=== PATIENT | female | born 1970 ===

== ENCOUNTER 2023-05-08 11:14 | Emergency (ER) | payer MEDICAID, SELFPAY ==
--- NOTE | ~2023-05-08 | XR_ITS ---
EXAMINATION: XR RIBS, LEFT CLINICAL INFORMATION: Reason for Exam lateral/posterior pain COMPARISON: None TECHNIQUE: 3 views of the Left ribs. 1 view of the chest. FINDINGS: No displaced rib fracture. Clear lungs. No pneumothorax. No pleural effusion. Normal cardiomediastinal silhouette. XR/XR ribs LT min 3V w CXR1V IMPRESSION: No displaced rib fracture. Please note that rib radiographs have low sensitivity for detection of rib fractures and if continued clinical concern CT chest is advised.
--- NOTE | 2023-05-08 11:40 | ED_ITS ---
HPI - General Adult General Chief complaint: General Medical Stated complaint: Rib pain left side Time Seen by Provider: 05/08/23 11:59 Source: patient and civil engineer's aide (Mongolian) Mode of arrival: ambulatory Limitations: no limitations History of Present Illness HPI narrative: 53 year old Mongolian speaking female with pmhx significant for hypertension and anxiety presents to the emergency department today for evaluation of acute left- sided rib pain that started 2 days ago. She states that she was sitting down and went to stand up when she felt pain to her left posterior ribs. Denies injury or trauma to the area. The pain is now traveling up her back. Pain is exacerbated with walking. She admits to having to lean forward when she walks due to the pain. States she feels as though she pulled something in her back. She has not taken any [id number] medications for this at home. States there are no associated symptoms with this. Denies recent travel or long car rides. Denies fever, chills, chest pain, shortness of breath, dyspnea, palpitations, hemoptysis, nausea or vomiting, abdominal pain or flank pain, dysuria, hematuria, lower extremity pain/swelling. Related Data Previous Rx's Medication Instructions Recorded cyclobenzaprine 5 mg tablet 5 mg PO BEDTIME PRN muscle spasm 05/08/23 #10 tabs lidocaine 5 % topical patch 1 patch topical DAILY #15 ea 05/08/23 (Lidoderm) naproxen 500 mg tablet 500 mg PO Q8-12H PRN pain (scale 05/08/23 score 4-6) #14 tabs Allergies Allergy/AdvReac Type Severity Reaction Status Date / Time No Known Allergies Allergy Unverified 11/08/19 15:33 [No Known Allergies*] Review of Systems Review of Systems: Constitutional: No fever, chills, fatigue, night sweats, weight changes ENT/Mouth: No ear pain, hearing loss, nasal congestion, sinus pain, rhinorrhea, sore throat Eyes: No eye pain, swelling, redness, vision changes, discharge Cardio: No chest pain, palpitations, HARDY, orthopnea, peripheral edema Pulm: No SOB, cough, sputum, wheezing, dyspnea, hemoptysis GI: No nausea, vomiting, hematemesis, abdominal pain, diarrhea, constipation, hematochezia, melena : No irregular bleeding, dysuria, frequency, urgency, hesitancy, hematuria, flank pain, urinary flow changes, urinary incontinence or retention MSK: No back pain, neck pain, joint pain, myalgias, +left rib pain Skin: No lesions, rashes Neuro: No weakness, numbness, paresthesias, LOC, dizziness, headache Psych: No anxiety/panic, depression, SI/HI, AH/VH All other systems reviewed and are negative. [facility] Past Medical History Attestation statement: The following information was validated with the patient. Source: old records reviewed and nursing notes reviewed Social History Social History Advance Directives: No Advance Directives Information Provided: No Physical Exam ED Vital Signs: Vital Signs - 24 hr 05/08/23 11:41 05/08/23 14:50 Temperature 97.3 F 97 F Pulse Rate 68 64 Respiratory Rate 16 16 Blood Pressure 117/77 127/81 Pulse Oximetry 97 98 Oxygen Delivery Method Room Air Room Air BMI result Body Mass Index 22.2 Vital signs stable, afebrile. Not hypoxic. Const General: cooperative, healthy appearing, comfortable and no acute distress Orientation/consciousness: patient oriented x3 Limitations: no limitations HENMT Head: Yes normal to inspection, Yes No palpable skull fracture present, Yes normocephalic and Yes atraumatic Eyes General: appearance normal, both eyes and all related structures Conjunctivae: conjunctivae normal Sclerae: sclerae normal Pupils: Equal, round and reactive pupils present EOM: EOMs intact bilaterally Neck Neck: Yes normal visual inspection, Yes full ROM, Yes no lymphadenopathy and Yes no JVD Chest Other: + slightly tender to palpation of the left lateral to posterior 7-10th ribs without palpable deformity. Chest palpation & inspection: normal inspection of the chest, no crepitus and no masses Resp Effort & Inspection: normal respiratory effort, able to speak in complete sentences and symmetric chest movement Auscultation: clear to auscultation bilaterally Cardio Jugular venous distension: no JVD Rate: regular rate Rhythm: regular rhythm GI Inspection: Yes normal to inspection Palpation (GI): Soft to palpation and nontender General: Yes no CVA tenderness Back/Spine/Pelvis Other: + no midline spinous tenderness or step-off deformity. There is some thoracic paraspinal muscle tenderness to palpation extending from about T8-T12. Back: no CVA tenderness Skin General skin exam: no rashes or lesions noted Neuro General: patient oriented x3 and gait normal Cranial nerves: Yes Equal, round and reactive pupils present Gait exam (Neuro): Normal gait present Course Course Course Narrative: This is a rapid medical exam: Additional HPI, ROS, PE not included below will be deferred to primary provider. Patient is a 53-year-old Mongolian speaking female presenting to the emergency department with complaint of left lateral/posterior rib pain since last night. Pain radiates up. Denies fall or other trauma. Denies recent cough. Plan: x-ray Reevaluation(s) Reevaluation #1: 1500-- urine is negative for infection and blood > renal colic vs nephrolithiasis is unlikely, especially given that patient does not have any urinary symptoms. X-ray of the left ribs does not demonstrate any displaced rib fracture. There is no pneumothorax or pleural effusion. Radiologist does suggest CT chest if concern for acute rib fracture however as her pain is atraumatic and there is no palpable deformity, there is low suspicion for rib fracture not identified on x-ray and CT will not be ordered at this time. Discussed all of these results with patient. She reports improvement in pain with lidocaine patch and Toradol. Pain is likely muscular in etiology. Will send Flexeril, naproxen and lidocaine patches to pharmacy. I educated her on worrisome signs and symptoms of when to return to the ED. Patient has remained stable throughout ED visit today. All questions answered at this time. Patient is agreeable with disposition and stable for discharge. Medications Administered Discontinued Medications Generic Name Dose Route Start Last Admin Trade Name Reginoq PRN Reason Stop Dose Admin Ketorolac Tromethamine 30 mg 05/08/23 12:14 05/08/23 12:29 Ketorolac Tromethamine 30 Mg/Ml Vial IM 05/08/23 12:15 30 mg ONCE ONE Administration Lidocaine 1 patch 05/08/23 12:13 05/08/23 12:29 Lidocaine 4 % Patch Adh..Patch TRANSDERMA 05/08/23 12:14 1 patch ONCE ONE Administration Protocol Medical Decision Making Medical Decision Making MDM Narrative: 53 year old Mongolian speaking female with pmhx significant for hypertension and anxiety presents to the emergency department today for evaluation of acute left- sided rib pain that started 2 days ago. Vital signs stable. Patient is nontoxic appearing in no acute distress. No increased effort of breathing. Symmetric chest rise. slightly tender to palpation of the left lateral to posterior 7-10th ribs without palpable deformity. no midline spinous tenderness or step-off deformity. There is some thoracic paraspinal muscle tenderness to palpation extending from about T8-T12. Differential diagnosis includes contusion, fracture, pneumo, pneumonia, atypical chest pain. Low suspicion for pleuritis, costochondritis, nephrolithiasis or renal colic, ACS or arrhythmia, flail chest. Plan for imaging and re-evaluation. Differential Diagnosis Differential Diagnoses: The differential diagnosis associated with the presentation includes as above Lab Data MDM Lab Attestation statement: I reviewed the patient's lab results. As above. Labs: Lab Results 05/08/23 Range/Units 12:28 Urine Color Yellow Urine Appearance Clear Urine pH 5.5 (5.0-9.0) Ur Specific [place] 1.020 (1.005-1.025) Urine Protein Negative (Neg-Trace) mg/dL Urine Glucose (UA) Negative (Negative) mg/dL Urine Ketones Negative (Negative) mg/dL Urine Blood Trace H (Negative) Urine Nitrite Negative (Negative) Ur Leukocyte Esterase Negative (Negative) Urine RBC 0-2 (0-2) /HPF Urine WBC 0-5 (0-5) /HPF Ur Squamous Epith Cells 0-2 (0-2) /HPF Urine Bacteria None Seen (None Seen) Hyaline Casts 0-2 (0-2) /LPF Independent Interpretation I performed an independent interpretation of an: Plain X-Ray Interpretation: I have reviewed x-ray of ribs and agree with radiologist's interpretation. Radiology Impression Discussion of test interpretation with radiology: I have reviewed the radiologist's reading. Radiologist Impression: EXAMINATION: XR RIBS, LEFT CLINICAL INFORMATION: Reason for Exam lateral/posterior pain COMPARISON: None TECHNIQUE: 3 views of the Left ribs. 1 view of the chest. FINDINGS: No displaced rib fracture. Clear lungs. No pneumothorax. No pleural effusion. Normal cardiomediastinal silhouette. XR/XR ribs LT min 3V w CXR1V IMPRESSION: No displaced rib fracture. Please note that rib radiographs have low sensitivity for detection of rib fractures and if continued clinical concern CT chest is advised. Tests considered The following testing was considered but not selected: As above Prescription Management I considered prescription management with: Pain Medication and Other (Flexeril, lidocaine patch, naproxen) Social Determinants Patient?s care significantly limited by Social Determinants of Health including: Other Social Determinant of Health Critical Care Time Critical Care Time Critical Care Time: No Discharge Plan Discharge Clinical Impression: Strain of thoracic back region Patient Disposition: Home, Self-Care Instructions: Naproxen (By mouth), Cyclobenzaprine (By mouth), Lidocaine Patch (On the skin), Muscle Strain (ED), Thoracic Back Strain (ED) Additional Instructions: The xray of your ribs does not demonstrate acute fracture. Your urine is negative for infection. Your pain is likely musculoskeletal. Avoid bending, lifting, or twisting. Use ice several times per day for 20 minutes at a time for the next 48 hours and then change to heat. Flexeril is a muscle relaxer. Take this at night as it makes you drowsy. Do not drive, drink alcohol, or operate machinery while taking it. Naproxen is an anti-inflammatory / pain medication. Take with food. Do not take this with Ibuprofen. Lidoderm patches are numbing patches. Apply to painful areas. In addition you may take Tylenol at home. Follow up with your primary care provider as needed If your pain worsens, if you develop new numbness, tingling, weakness, loss of bowel or bladder function call 911 or return to the ER immediately for evaluation. Prescriptions: New naproxen 500 mg tablet 500 mg PO Q8-12H PRN (Reason: pain (scale score 4-6)) Qty: 14 0RF lidocaine [Lidoderm] 5 % adhesive patch,medicated 1 patch topical DAILY Qty: 15 0RF Rx Instructions: leave on most painful area for up to 12 hrs cyclobenzaprine 5 mg tablet 5 mg PO BEDTIME PRN (Reason: muscle spasm) Qty: 10 0RF Interventions: ED Discharge Assessment Last Done: 05/08/23 14:50 Discharge Date/Time: 05/08/23 14:51 Print Language: Mongolian
[2023-05-08 11:41] VITALS: BP 117/77; PULSE 68; RESP 16; TEMP 36.3; O2SAT 97; BMI 22.2
[2023-05-08] MEDS: Lidocaine 4 % Patch ADH..PATCH 1 PATCH TRANSDERMA (12:29)
[2023-05-08] MEDS: Ketorolac Tromethamine 30 MG/ML VIAL IM (12:29)
[2023-05-08 12:39] LABS: Appearance Urine Clear; Color Urine Yellow; Glucose Urine UA Negative (Negative); Leukocyte Esterase Urine Negative (Negative); Nitrite Urine Negative (Negative); PH 5.5 (5.0-9.0); UMIC TRIGGER UACC YES; Urine Blood Trace (Negative); Urine Ketones Negative (Negative); Urine Protein Negative (Neg-Trace)
[2023-05-08 12:41] LABS: Bacteria Urine None Seen (None Seen); Hyaline Casts Urine 0-2 /LPF (0-2); RBC Urine 0-2 /HPF (0-2); Squamous Epithelial Cell Urine 0-2 /HPF (0-2); WBC Urine 0-5 /HPF (0-5)
[2023-05-08 14:50] VITALS: BP 127/81; PULSE 64; RESP 16; TEMP 36.1; O2SAT 98
== END 2023-05-08 14:51 | disposition home or self-care (01) ==
PROVIDERS: Physician Assistant Medical; Emergency Provider Emergency Medicine
DX: S29.012A Strain of muscle and tendon of back wall of thorax, initial encounter (principal); I10 Essential (primary) hypertension; X58.XXXA Exposure to other specified factors, initial encounter; Y93.9 Activity, unspecified; Y92.9 Unspecified place or not applicable; Y99.9 Unspecified external cause status
CPT/HCPCS: 71101; 81001; 96372; 99283; 99284; J1885

== ENCOUNTER 2023-09-19 12:06 | Outpatient (REF) | payer MEDICAID, SELFPAY ==
[2023-09-19 14:31] LABS: Alanine Aminotransferase 21 U/L (0-31); Albumin Level 4.5 g/dL (3.5-5.0); Alkaline Phosphatase 73 U/L (39-117); Aspartate Amino Transferase 19 U/L (5-31); Bilirubin Direct 0.1 mg/dL (0.0-0.5); Bilirubin Total 0.4 mg/dL (0.0-1.0); Total Protein 8.2 g/dL (6.5-8.0); Vitamin D 25-OH Total 44.2 ng/mL (>30)
[2023-09-19 14:50] LABS: Folate 10.6 ng/mL (> or = 4.0); Vitamin B12 447 pg/mL (200-900)
[2023-09-20 04:46] LABS: HBS Num1 7.78 mIU/mL (0-7.99); HBc Num1 0.11 S/CO (0.00-0.79); HBsAGNum1 0.23 S/CO (0.00-0.99); HIV AB/AG Nonreactive (Nonreactive); HIV Num 1 0.05 S/CO (0.00-0.99); Hepatitis A Antibody IgM 0.29 Index (0-0.79); Hepatitis B Core Antibody Nonreactive (Nonreactive); Hepatitis B Surface Antigen Negative (Negative); ~HepC Num1 0.12 S/CO (0.00-0.79); ~Hepatitis A Antibody IgM Nonreactive (Nonreactive); ~Hepatitis B Surface Antibody NONREACTIVE (Nonreactive); ~Hepatitis C Antibody Nonreactive (Nonreactive)
[2023-09-21 07:58] LABS: RPR Rapid Plasma Reagin NON-REACTIVE (NON-REACTIVE)
== END 2023-09-19 12:07 | disposition home or self-care (01) ==
LOC: HO.HHCL 12:06
PROVIDERS: Visit Provider Internal Medicine
DX: R41.3 Other amnesia (principal)
CPT/HCPCS: 36415; 80076; 82306; 82607; 82746; 86592; 86704; 86706; 86709; 86803; 87340; 87389

== ENCOUNTER 2023-09-30 07:57 | Outpatient (REF) | payer MEDICAID, SELFPAY ==
--- NOTE | ~2023-09-30 | CT_ITS ---
EXAMINATION CT HEAD WITHOUT CONTRAST CLINICAL INFORMATION: Memory impairment, rule out vascular dementia COMPARISON: None TECHNIQUE: CT of the head was performed without intravenous contrast. Reformatted axial, coronal, and sagittal images were reviewed. This CT examination was performed using dose optimization techniques as appropriate, variously including the following: *Automated exposure control *Adjustment of mA and/or kV according to patient size (this includes techniques or standardized protocols for targeted exams where dose is matched to indication/reason for exam; i.e. extremities or head) *Use of iterative reconstruction technique DLP: 680 mGy-cm FINDINGS: No intracranial hemorrhage, extra-axial fluid collection, or midline shift is identified. Stack-white matter differentiation is preserved. The ventricles are within normal limits. Basal cisterns are within normal limits. Paranasal sinuses are clear. Mastoid air cells and middle ear cavities are clear. No acute calvarial fractures. CT/CT head/brain wo IV con IMPRESSION: No acute intracranial abnormality. Electronically signed by: Art Lang DO 10/24/2023 09:37 PM EDT
== END 2023-09-30 07:58 | disposition home or self-care (01) ==
LOC: HO.CT 07:57
PROVIDERS: PCP Internal Medicine; Visit Provider Internal Medicine
DX: R41.3 Other amnesia (principal); F41.8 Other specified anxiety disorders; I10 Essential (primary) hypertension
CPT/HCPCS: 70450

== ENCOUNTER 2023-10-24 09:23 | Emergency (ER) | payer MEDICAID, SELFPAY ==
--- NOTE | 2023-10-24 | ECG_ITS ---
Test Reason : TACHYCARDIA Blood Pressure : / mmHG Vent. Rate : 072 BPM Atrial Rate : 072 BPM P-R Int : 120 ms QRS Dur : 062 ms QT Int : 362 ms P-R-T Axes : 064 048 -15 degrees QTc Int : 396 ms Normal sinus rhythm Possible Left atrial enlargement Abnormal QRS-T angle, consider primary T wave abnormality Abnormal ECG When compared with ECG of 27-DEC-2014 10:29, No significant change was found Referred By: Generic ED Physician Electronically Signed By:ROSENDO JAIN
[2023-10-24 09:48] VITALS: BP 146/74; PULSE 77; RESP 18; TEMP 36.6; O2SAT 99; BMI 24.1
== END 2023-10-24 18:20 | disposition left against medical advice (07) ==
PROVIDERS: Emergency Provider Emergency Medicine
DX: R00.0 Tachycardia, unspecified (principal); Z53.21 Procedure and treatment not carried out due to patient leaving prior to being seen by health care provider
CPT/HCPCS: 93005; 99281; 99283